=== PATIENT | female | born 1955 | race Hispanic/Latino ===

== ENCOUNTER 2018-02-20 12:52 | Outpatient (CLI) | payer MEDICAID ==
--- NOTE | 2018-02-21 08:58 | PET Report ---
PET/CT:02/20/18 12:52:00 CLINICAL: Right breast cancer staging. Status post right ultrasound needle breast biopsy at 2 o'clock 17 cm from the nipple on 11/28/17 with pathologic diagnosis of invasive carcinoma NOS. She also had an ultrasound guided needle biopsy of right axillary lymph node on 12/05/17 and it showed a small focus of metastatic carcinoma. RADIOPHARMACEUTICAL: 13.115mCi F18-FDG. COMPARISON: CT CAP 01/27/18 TECHNIQUE- Following intravenous injection of F-18 FDG and an approximately 60 minute uptake period, CT and PET images from the mid skull to the upper thighs were acquired with the patient in the fasted state. No contrast was administered. The CT protocol used for this PET CT study is designed for attenuation correction and anatomic localization of PET abnormalities. 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 Plasma glucose at the time of this test: 93g/dl. The standardized uptake values (SUV) are normalized to patient body weight and indicate the highest activity concentration (SUV max) in a given disease site. FINDINGS: Brain--Physiologic FDG uptake in the visualized regions of the brain. Neck--Physiologic FDG uptake in mucosal structures. No mass or lymphadenopathy. Chest--An FDG avid 1.5 cm mass of the upper inner right breast with SUV 3.4 correlates with the known cancer. It is adjacent to the pectoral muscle in a parasternal location. No other breast or chest wall mass. Physiologic FDG uptake in mediastinal blood pool and myocardium. Lungs--No abnormal uptake. No pulmonary nodule or mass. Pleura/pericardium--No abnormal uptake. Thoracic nodes--Small bilateral axillary lymph nodes. Mild FDG uptake in the right axilla at the site of the biopsied lymph node. The lymph node measures approximately 1 cm with SUV 1.6. An adjacent lymph node measures 1.3 cm. No other suspicious lymph nodes. Calcified left hilar lymph nodes and no suspicious mediastinal or hilar lymph nodes. Hepatobiliary--No abnormal uptake. Liver background SUV mean, as a reference for comparing FDG studies, is 3.8 . No liver mass. Spleen--No abnormal uptake. Pancreas--No abnormal uptake. Adrenal Glands--No abnormal uptake. Kidneys/Ureters/Bladder--No abnormal uptake. Abdominopelvic Nodes--No abnormal uptake. Bowel/Peritoneum/Mesentery--No abnormal uptake. Pelvic organs--No abnormal uptake. Bones/Soft Tissues--No abnormal uptake and no suspicious bone lesion. IMPRESSION- 1. Right upper inner breast cancer. 2. Mild FDG uptake in the right axilla at the known axillary jose alejandro metastasis. No other suspicious lymph nodes. 3. No evidence of pulmonary, hepatic or skeletal metastasis.
== END 2018-02-20 12:53 | disposition home or self-care (01) ==
LOC: PET 12:52
PROVIDERS: ATTEND Surgery
DX: C50.211 Malignant neoplasm of upper-inner quadrant of right female breast (principal); E78.00 Pure hypercholesterolemia, unspecified; J44.9 Chronic obstructive pulmonary disease, unspecified; Z90.49 Acquired absence of other specified parts of digestive tract; Z87.891 Personal history of nicotine dependence
CPT/HCPCS: 78815; 82962; A9552